=== PATIENT | female | born 1990 | race Caucasian/White ===

== ENCOUNTER 2019-05-24 15:17 | Emergency (ER) | payer OTHER ==
[2019-05-24 15:22] VITALS: RESP 16
[2019-05-24 16:07] VITALS: PULSE 74
[2019-05-24 16:08] VITALS: BP 118/80; TEMP 98
--- NOTE | 2019-05-24 16:09 | ED ---
General Adult HPI - General Chief complaint: Overdose Stated complaint: Overdose Time Seen by Provider: 05/24/19 15:24 Source: patient, EMS, RN notes reviewed, old records reviewed Mode of arrival: EMS Limitations: no limitations - History of Present Illness Initial comments: 29-year-old female presents for heroin overdose. She admits to using IV heroin, she was found by her father, she states that she was just sleeping in her father had administered Narcan. She was alert and oriented at the time of EMS arrival. She has a known addiction to heroin. She states she was planning on going to her primary care physician for Suboxone later today. She denies suicidal ideation or suicide attempt. She is alert and oriented with no complaints time my evaluation. Review of Systems ROS Statement: Those systems with pertinent positive or pertinent negative responses have been documented in the HPI. ROS Other: All systems not noted in ROS Statement are negative. Past Medical History Past Surgical History: Section Additional Past Surgical History / Comment(s): 2009, 2017, 2018 Smoking Status: Current every day smoker Past Alcohol Use History: None Reported Past Drug Use History: Heroin General Exam Limitations: no limitations General appearance: alert, in no apparent distress Head exam: Present: atraumatic, normocephalic Eye exam: Present: normal appearance, PERRL, EOMI ENT exam: Present: normal exam Neck exam: Present: normal inspection. Absent: tenderness, meningismus Respiratory exam: Present: normal lung sounds bilaterally. Absent: respiratory distress, wheezes Cardiovascular Exam: Present: regular rate, normal rhythm GI/Abdominal exam: Present: soft. Absent: distended, tenderness Extremities exam: Present: normal inspection, normal capillary refill Neurological exam: Present: alert, oriented X3, CN II-XII intact. Absent: motor sensory deficit Psychiatric exam: Present: normal affect, normal mood Skin exam: Present: warm, dry, intact. Absent: cyanosis, diaphoretic Course Vital Signs 05/24/19 05/24/19 05/24/19 15:19 15:30 16:07 Temperature 98.3 F 98.0 F Pulse Rate 69 74 74 Respiratory 16 16 16 Rate Blood Pressure 130/80 119/81 118/80 O2 Sat by Pulse 100 100 100 Oximetry Medical Decision Making - Medical Decision Making Patient is observed following intranasal Narcan for approximately 90 minutes. She has stable vitals, she is awake and alert with no hypoxia or hypoventilation. She is very eager for discharge. She does not want stay in the emergency department any longer. Her father is accompanying her. She will follow-up with her primary care physician. She denies any suicidal ideation or suicide attempt. Disposition Clinical Impression: Accidental drug overdose, Poisoning by opiates and related narcotics, other Disposition: HOME SELF-CARE Condition: Fair Instructions (If sedation given, give patient instructions): Adult Overdose (ED), Opioid Use Disorder (ED) Is patient prescribed a controlled substance at d/c from ED?: No Referrals: None,Stated [Primary Care Provider] - 1-2 days Roberto Lozoya MD [REFERRING] - 1-2 days Time of Disposition: 16:26
== END 2019-05-24 16:31 | disposition home or self-care (01) ==
LOC: EC 15:17
DX: T40.1X1A Poisoning by heroin, accidental (unintentional), initial encounter (principal); F11.20 Opioid dependence, uncomplicated; F17.200 Nicotine dependence, unspecified, uncomplicated
CPT/HCPCS: 99284